=== PATIENT | female | born 1990 | race Caucasian/White ===

== ENCOUNTER 2016-09-23 19:54 | Emergency (ER) | payer OTHER ==
[~2016-09-23] VITALS: Ht 175.3 cm; Wt 98.4 kg
[2016-09-23] MEDS ORDERED: KETOROLAC 30 MG/1 ML IM ONE (20:30)
[2016-09-23] MEDS ORDERED: SODIUM CHLORIDE 0.9% 1,000ML IVBOLUS ONE ×2 (21:00→23:30)
[2016-09-23] MEDS ORDERED: ACETAMINOPHEN 500 MG TABLET PO ONE (21:00)
[2016-09-23] MEDS ORDERED: SODIUM CHLORIDE FLUSH 10ML SYR IVF ONE (21:00)
[2016-09-23 21:13] LABS: HEMOGLOBIN 13.6 g/dL (11.7-16.4)
[2016-09-23 21:25] LABS: BLOOD UREA NITROGEN 13 mg/dL (7-18)
[2016-09-23 21:30] LABS: IS PT STATUS REG ER OR PRE ER? YES
[2016-09-23] MEDS ORDERED: KETOROLAC 30 MG/1 ML IVPush ONE (21:30)
[2016-09-23] MEDS ORDERED: KETOROLAC 30 MG/1 ML ONE (21:34)
[2016-09-23] MEDS ORDERED: ACETAMINOPHEN 500 MG TABLET ONE (21:35)
[2016-09-23 23:30] LABS: RAPID INFLUENZA A Negative (Negative); RAPID INFLUENZA B Negative (Negative)
[2016-09-24 00:50] VITALS: BP 113/60
== END 2016-09-24 01:01 | disposition home or self-care (01) ==
LOC: ED 23:59
DX: R07.89 Other chest pain (principal); B34.9 Viral infection, unspecified
CPT/HCPCS: 36415; 71020; 80048; 81003; 82040; 84484; 85025; 85379; 87400; 93005; 96361; 96374; 99285; J1885; J7030